=== PATIENT | male | born 1975 | race Asian ===

== ENCOUNTER 2020-12-22 22:33 | Emergency (ER) | payer OTHER, SELFPAY ==
[2020-12-22 22:34] VITALS: BP 137/77; PULSE 82; RESP 18; TEMP 36.5; O2SAT 99; BMI 22.1
--- NOTE | 2020-12-22 23:39 | ED.WOUNDLAC ---
HPI - Wound/Laceration General Chief Complaint: Wound/Laceration Stated Complaint: finger lac Time Seen by Provider: 12/22/20 23:30 Source: patient Mode of arrival: ambulatory Limitations: no limitations History of Present Illness HPI narrative: While doing dishes the glass shattered and he cut his finger. States there is no foreign body. he is up to date with his tetanous. Onset (ago): hour(s) Extremity Location: left: hand Place: home Patient tetanus UTD: Yes Context: accidental Treatments prior to arrival: cold therapy Related Data Allergies Allergy/AdvReac Type Severity Reaction Status Date / Time lamotrigine [From LAMICTAL] Allergy Severe RASH - Verified 12/22/20 23:13 FULL BODY varenicline [From CHANTIX] AdvReac Unknown SUICIDAL Verified 12/22/20 23:13 ziprasidone [From GEODON] AdvReac Unknown SUICIDAL Verified 12/22/20 23:13 SSRI AdvReac Intermediate SI Uncoded 12/12/19 16:53 Review of Systems Constitutional: Constitutional: Reports no additional constitutional complaints Eyes: Eyes: Reports no additional eye complaints ENT: Denies dizziness Cardiovascular: Cardiovascular: Reports no additional cardiovascular complaints Respiratory: Respiratory: Reports as per HPI Gastrointestinal: Gastrointestinal: Reports no additional gastrointestinal complaints Musculoskeletal: Musculoskeletal: Reports no additional musculoskeletal complaints Integumentary/Breasts: Skin/Breast: Denies rash Neurologic: Reports system reviewed and no additional complaints, except as documented, Denies dizziness and Denies Sensory deficit (Neuro) Psychiatric: Psychiatric: Denies anxiety [facility] Social History Social History Advance Directives: No Physical Exam Vital Signs: Vital Signs: Last Vital Signs Temp 97.7 F 12/22/20 22:34 Pulse 82 12/22/20 22:34 Resp 18 12/22/20 22:34 BP 137/77 12/22/20 22:34 Pulse Ox 99 12/22/20 22:34 Body Mass Index 22.1 Const: General: healthy appearing Nutritional Appearance: average body habitus Orientation/consciousness: oriented to person and patient oriented x3 Limitations: no limitations HENMT: Head: Yes normal to inspection Ears: external ears normal General nose exam: Normal external nose present Mouth: Normal oral and palatal mucosa present and oropharynx normal Throat: Yes posterior oropharynx normal Eyes: General: appearance normal, both eyes and all related structures Neck: Other: supple Neck: Yes normal visual inspection Chest: Chest palpation & inspection: normal inspection of the chest Resp: Auscultation: clear to auscultation bilaterally Cardio: Jugular venous distension: no JVD Rate: regular rate Rhythm: regular rhythm Heart sounds: S1 normal heart sound present and S2 normal heart sound present GI: Inspection: Yes normal to inspection Palpation (GI): Soft to palpation, nontender and No hepatosplenomegaly present Auscultation: normal bowel sounds : General: Yes no CVA tenderness Back/Spine/Pelvis: Back: no CVA tenderness Skin: Other: 4th digit lateral distal phalynx with laceration 1cm Neuro: General: oriented to person and patient oriented x3 Cranial nerves: Yes CN's II-XII intact bilaterally Motor exam (neuro): 5/5 motor strength present throughout Sensory Exam: No Sensory deficit (Neuro) Extrem: General: Yes normal to inspection Psych: Appearance: grossly normal Procedures Procedure Narrative Procedure Narrative: distal phalynx had dermabond placed. Patient tolerated procedure well. Discharge Plan Discharge Clinical Impression: Laceration, Glued skin wound Patient Disposition: Home, Self-Care Instructions: Finger Laceration (ED) Referrals: Kirk Sherwood MD [Primary Care Provider] - 10 days
== END 2020-12-23 00:18 | disposition home or self-care (01) ==
PROVIDERS: Emergency Provider Emergency Medicine; PCP Internal Medicine
DX: S61.215A Laceration without foreign body of left ring finger without damage to nail, initial encounter (principal); M79.642 Pain in left hand; W25.XXXA Contact with sharp glass, initial encounter; Y93.9 Activity, unspecified; Y92.000 Kitchen of unspecified non-institutional (private) residence as the place of occurrence of the external cause; Y99.9 Unspecified external cause status
CPT/HCPCS: 99283

== ENCOUNTER 2023-02-13 13:57 | Outpatient (AMB) | payer OTHER, SELFPAY ==
--- NOTE | 2023-02-13 14:01 | HO.NEPHOV_ITS ---
HPI HPI Comments History of Present Illness Details I had the privilege of seeing Mr Templeton in consultation for his chronic kidney disease and polyuria. He has mental health issues which is managed by Dr. Scahefer. He feels it is currently well controlled. He is back on lithium. At one time his serum creatinine went up to 1.5. He is troubled by the fact that he has polyuria after he went back on lithium. He has no history of hypercalcemia, hypernatremia. He is not a diabetic. He denies any chest pain, shortness of breath, proximal nocturnal dyspnea, orthopnea, pedal edema, hematuria, flank pain, pedal edema, history of proteinuria. He does not take any excessive nonsteroidal anti-inflammatory medications. He does not have any epistaxis, photosensitivity, skin rashes, hematemesis, melena or history of prostatic symptoms. His renal functions had been stable. [facility] Medical History (Updated 02/13/23 @ 14:23 by Edgar Cao MD) PTSD (post-traumatic stress disorder) Bipolar disorder Surgical History (Updated 02/13/23 @ 14:05 by Kristin Jay MA) History of hand surgery History of throat surgery Family History (Updated 02/13/23 @ 14:07 by Kristin Jay MA) Father Diabetes Paternal Aunt Diabetes Paternal Grandmother Diabetes (Updated 02/13/23 @ 14:06 by Kristin Jay MA) Alcohol intake: never Patient Tobacco Use Status: Never used Tobacco Substance Use Type: Marijuana Vital Signs 02/13/23 14:02 Height 5 ft 9.5 in Weight 133 lb 8 oz BMI 19.4 BP 100/60 Blood Pressure Location Lt brachial Position Sitting Pulse 79 Pulse Source Pulse Oximeter Physical Exam Vital Signs: Last Vital Signs Pulse 79 02/13/23 14:02 BP 100/60 02/13/23 14:02 BMI result Body Mass Index 19.4 Const General: comfortable and no acute distress Orientation/consciousness: patient oriented x3 HEENT Head: Yes normocephalic Mouth: Normal oral and palatal mucosa present Eyes EOM: EOMs intact bilaterally Neck Neck: Yes supple Resp Auscultation: clear to auscultation bilaterally Cardio Jugular venous distension: no JVD Rate: regular rate GI Palpation (GI): Soft to palpation Auscultation: normal bowel sounds General: Yes no CVA tenderness Back/Spine/Pelvis Back: no CVA tenderness Skin General skin exam: no rashes or lesions noted Neuro General: patient oriented x3 and moves all extremities Extrem General: Yes no pedal edema Assessment & Plan Assessment & Plan (1) Diabetes insipidus: Code(s): E23.2 - Diabetes insipidus Plan: 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 His renal functions are pretty stable. He has no hypernatremia, hypercalcemia but has polyuria. He does not take any nonsteroidal anti-inflammatory medications. He denies compulsive water intake. I have started him on amiloride 2.5 mg daily. I explained that we need to monitor his electrolytes including potassium as well as renal functions. I shall check urine specific gravity, serum calcium, serum sodium as well as renal functions. Will check a urine protein creatinine ratio with time. All his questions and concerns were addressed regarding his mild CKD and polyuria. Follow-up appointment was given. Time spent retrieving data, patient encounter and documentation 31 minutes. Orders: Orders Electrolytes 02/13/23 E23.2 - Diabetes insipidus Blood Urea Nitrogen 02/13/23 E23.2 - Diabetes insipidus Creatinine 02/13/23 E23.2 - Diabetes insipidus Calcium 02/13/23 E23.2 - Diabetes insipidus Medications: New amiloride 2.5 mg (1/2 x 5 mg) PO DAILY 30 days 15 tabs 3RF Coding Level of Care Code New Pt Level 4 (03754) Diagnoses Diabetes insipidus E23.2
[2023-02-13 14:02] VITALS: BP 100/60; PULSE 79; BMI 19.4
== END 2023-02-13 14:29 | disposition home or self-care (01) ==
PROVIDERS: PCP Internal Medicine; Visit Provider Internal Medicine Nephrology
DX: E23.2 Diabetes insipidus (principal); N18.2 Chronic kidney disease, stage 2 (mild); R35.89 Other polyuria
CPT/HCPCS: 99204

== ENCOUNTER → 2023-02-13 13:57 | Outpatient (BNVA) | payer OTHER, SELFPAY | PROVIDERS: PCP Internal Medicine; Visit Provider Internal Medicine Nephrology | DX: E23.2 Diabetes insipidus (principal) | CPT/HCPCS: 99202 ==

== ENCOUNTER 2023-04-12 15:48 | Outpatient (REF) | payer OTHER, SELFPAY ==
[2023-04-12 16:59] LABS: Anion Gap 10 (12-20); Blood Urea Nitrogen 7 mg/dL (9-16); Calcium 9.6 mg/dL (8.4-10.2); Carbon Dioxide 30 mmol/L (22-29); Chloride 102 mmol/L (96-108); Estimated Glomerular Filt Rate > 60; Potassium 3.8 mmol/L (3.3-5.1); Sodium 138 mmol/L (135-145)
== END 2023-04-12 15:49 | disposition home or self-care (01) ==
LOC: HO.LAB 15:48
PROVIDERS: PCP Internal Medicine; Visit Provider Internal Medicine Nephrology
DX: E23.2 Diabetes insipidus (principal)
CPT/HCPCS: 36415; 80051; 82310; 82565; 84520

== ENCOUNTER 2023-04-18 14:03 | Outpatient (AMB) | payer OTHER, SELFPAY ==
[2023-04-18 14:12] VITALS: BP 102/70; PULSE 85; O2SAT 99; BMI 19.0
--- NOTE | 2023-04-18 14:12 | HO.NEPHOV ---
HPI HPI Comments History of Present Illness Details I had the privilege of seeing Mr Templeton in follow up for his chronic kidney disease and polyuria. He has mental health issues which is managed by Dr. Schaefer. He feels it is currently well controlled. He is back on lithium. At one time his serum creatinine went up to 1.5 but has settled to baseline now. He is troubled by the fact that he has polyuria after he went back on lithium. He has no history of hypercalcemia, hypernatremia. He is not a diabetic. He denies any chest pain, shortness of breath, proximal nocturnal dyspnea, orthopnea, pedal edema, hematuria, flank pain, pedal edema, history of proteinuria. He feels he has some nocturnal incontinence. He does not take any excessive nonsteroidal anti-inflammatory medications. He does not have any epistaxis, photosensitivity, skin rashes, hematemesis, melena or history of prostatic symptoms. He claims to be compliant with his medications. He follows with a psychiatrist every month. [facility] Medical History (Updated 04/18/23 @ 14:40 by Edgar Cao MD) PTSD (post-traumatic stress disorder) Bipolar disorder Surgical History History of hand surgery History of throat surgery Family History Father Diabetes Paternal Aunt Diabetes Paternal Grandmother Diabetes Social History Alcohol intake: never Patient Tobacco Use Status: Never used Tobacco Substance Use Type: Marijuana Vital Signs 04/18/23 14:12 Height 5 ft 9.5 in Weight 130 lb 8 oz BMI 19.0 BP 102/70 Blood Pressure Location Lt brachial Position Sitting Pulse 85 Pulse Source Pulse Oximeter Pulse Oximetry (%) 99 Oxygen Delivery Method Room Air Physical Exam Vital Signs: Last Vital Signs Pulse 85 04/18/23 14:12 BP 102/70 04/18/23 14:12 Pulse Ox 99 04/18/23 14:12 Oxygen Delivery Method Room Air 04/18/23 14:12 BMI result Body Mass Index 19.0 Const General: comfortable and no acute distress Orientation/consciousness: patient oriented x3 HEENT Head: Yes normocephalic Mouth: Normal oral and palatal mucosa present Eyes EOM: EOMs intact bilaterally Neck Neck: Yes supple Resp Auscultation: clear to auscultation bilaterally Cardio Jugular venous distension: no JVD Rate: regular rate GI Palpation (GI): Soft to palpation Auscultation: normal bowel sounds General: Yes no CVA tenderness Back/Spine/Pelvis Back: no CVA tenderness Skin General skin exam: no rashes or lesions noted Neuro General: patient oriented x3 and moves all extremities Extrem General: Yes no pedal edema Assessment & Plan Assessment & Plan (1) Diabetes insipidus: Code(s): E23.2 - Diabetes insipidus (2) CKD (chronic kidney disease) stage 3, GFR 30-59 ml/min: Code(s): N18.30 - Chronic kidney disease, stage 3 unspecified Qualifiers: Chronic kidney disease stage 3 subtype: stage 3a (GFR 45-59) Qualified Code(s): N18.31 - Chronic kidney disease, stage 3a Plan 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 His renal functions are pretty stable. He has no hypernatremia, hypercalcemia but has polyuria. He does not take any nonsteroidal anti-inflammatory medications. He denies compulsive water intake. I increased his amiloride to 5 mg daily. I explained that we need to monitor his electrolytes including potassium as well as renal functions. I shall check urine specific gravity, serum calcium, serum sodium as well as renal functions. Will check a urine protein creatinine ratio with time. All his questions and concerns were addressed regarding his mild CKD and polyuria. Follow-up appointment was given. Orders: Orders Creatinine Today E23.2 - Diabetes insipidus Calcium Today E23.2 - Diabetes insipidus Electrolytes Today E23.2 - Diabetes insipidus Blood Urea Nitrogen Today E23.2 - Diabetes insipidus Coding Level of Care Code Est Pt Level 4 (44940) Diagnoses Diabetes insipidus E23.2 Stage 3a chronic kidney disease N18.31 Chronic kidney disease stage 3 subtype: stage 3a (GFR 45-59) Results Reviewed Nephrology Results: Hgb 12.2 g/dL (14.0-18.0) L 09/16/19 WBC 6.9 X10*3/uL (4.8-10.8) 09/16/19 Plt Count 250 x10*3/uL (160-400) 09/16/19 Sodium 138 mmol/L (135-145) 04/12/23 Potassium 3.8 mmol/L (3.3-5.1) 04/12/23 Chloride 102 mmol/L (96-108) 04/12/23 Carbon Dioxide 30 mmol/L (22-29) H 04/12/23 BUN 7 mg/dL (9-16) L 04/12/23 Creatinine 1.11 mg/dL (0.5-1.4) 04/12/23 Calcium 9.6 mg/dL (8.4-10.2) 04/12/23 Urine Protein NEG (NEG - TRACE) 09/12/19
== END 2023-04-18 15:01 | disposition home or self-care (01) ==
PROVIDERS: PCP Internal Medicine; Visit Provider Internal Medicine Nephrology
DX: E23.2 Diabetes insipidus (principal); N18.31 Chronic kidney disease, stage 3a
CPT/HCPCS: 99214

== ENCOUNTER → 2023-04-18 14:03 | Outpatient (BNVA) | payer OTHER, SELFPAY | PROVIDERS: PCP Internal Medicine; Visit Provider Internal Medicine Nephrology | DX: E23.2 Diabetes insipidus (principal); N18.31 Chronic kidney disease, stage 3a | CPT/HCPCS: 99212 ==

== ENCOUNTER 2023-07-27 13:26 | Outpatient (AMB) | payer OTHER, SELFPAY ==
--- NOTE | 2023-07-27 13:33 | HO.NEPHOV ---
Vital Signs 07/27/23 13:40 Height 5 ft 9.5 in Weight 127 lb 4 oz BMI 18.5 BP 90/60 Blood Pressure Location Lt brachial Position Sitting Pulse 81 Pulse Source Pulse Oximeter Pulse Oximetry (%) 98 Oxygen Delivery Method Room Air Intake Visit Reasons: CKD/ 3 Months/ Confirmed Oncology Nurse Navigator Required: No Accompanied by: Self / Same As Patient Allergies lamotrigine [From LAMICTAL] Allergy (Severe, Verified 07/27/23 13:41) RASH - FULL BODY varenicline [From CHANTIX] Adverse Reaction (Unknown, Verified 07/27/23 13:41) SUICIDAL ziprasidone [From GEODON] Adverse Reaction (Unknown, Verified 07/27/23 13:41) SUICIDAL SSRI Adverse Reaction (Intermediate, Uncoded 12/12/19 16:53) SI HPI Comments Details: I had the privilege of seeing Mr Templeton in follow up for his chronic kidney disease and polyuria. He has mental health issues which is managed by Dr. Schaefer. He feels it is currently well controlled. He is back on lithium. At one time his serum creatinine went up to 1.5 but has settled to baseline now. He was troubled by the fact that he has polyuria after he went back on lithium. He has no history of hypercalcemia, hypernatremia. He is not a diabetic. He denies any chest pain, shortness of breath, proximal nocturnal dyspnea, orthopnea, pedal edema, hematuria, flank pain, pedal edema, history of proteinuria. He feels he has some nocturnal incontinence. He does not take any excessive nonsteroidal anti-inflammatory medications. He does not have any epistaxis, photosensitivity, skin rashes, hematemesis, melena or history of prostatic symptoms. He claims to be compliant with his medications. He follows with a psychiatrist every month . He has been started on Depakote but was making him drowsy and it has been stopped. [facility] Medical History (Updated 04/18/23 @ 14:40 by Edgar Cao MD) PTSD (post-traumatic stress disorder) Bipolar disorder Surgical History History of hand surgery History of throat surgery Family History Father Diabetes Paternal Aunt Diabetes Paternal Grandmother Diabetes Social History Alcohol intake: never Patient Tobacco Use Status: Never used Tobacco Substance Use Type: Marijuana Physical Exam Const General: comfortable and no acute distress Orientation/consciousness: patient oriented x3 HEENT Head: Yes normocephalic Mouth: Normal oral and palatal mucosa present Eyes EOM: EOMs intact bilaterally Neck Neck: Yes supple Resp Auscultation: clear to auscultation bilaterally Cardio Jugular venous distension: no JVD Rate: regular rate GI Palpation (GI): Soft to palpation Auscultation: normal bowel sounds General: Yes no CVA tenderness Back/Spine/Pelvis Back: no CVA tenderness Skin General skin exam: no rashes or lesions noted Neuro General: patient oriented x3 and moves all extremities Extrem General: Yes no pedal edema Assessment & Plan Assessment & Plan (1) CKD (chronic kidney disease) stage 3, GFR 30-59 ml/min: Code(s): N18.30 - Chronic kidney disease, stage 3 unspecified Category: Medical Qualifiers: Chronic kidney disease stage 3 subtype: stage 3a (GFR 45-59) Qualified Code(s): N18.31 - Chronic kidney disease, stage 3a (2) Diabetes insipidus: Code(s): E23.2 - Diabetes insipidus Category: Medical Plan 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 His renal functions had been pretty stable. He has no hypernatremia, hypercalcemia but has polyuria. He does not take any nonsteroidal anti-inflammatory medications. He denies compulsive water intake. He can c/w amiloride 5 mg daily. I explained that we need to monitor his electrolytes including potassium as well as renal functions. I shall check urine specific gravity, serum calcium, serum sodium as well as renal functions. Will check a urine protein creatinine ratio with time. All his questions and concerns were addressed regarding his mild CKD and polyuria. Follow-up appointment was given Orders: Orders Electrolytes Today Protein Creatinine Ratio, Ur Today Creatinine Today Blood Urea Nitrogen Today Calcium Today Specific [place] - Urine Today Coding Level of Care Code Est Pt Level 4 (71388) Diagnoses Stage 3a chronic kidney disease N18.31 Chronic kidney disease stage 3 subtype: stage 3a (GFR 45-59) Diabetes insipidus E23.2
[2023-07-27 13:40] VITALS: BP 90/60; PULSE 81; O2SAT 98; BMI 18.5
== END 2023-07-27 13:56 | disposition home or self-care (01) ==
PROVIDERS: PCP Internal Medicine; Visit Provider Internal Medicine Nephrology
DX: N18.31 Chronic kidney disease, stage 3a (principal); E23.2 Diabetes insipidus
CPT/HCPCS: 99214

== ENCOUNTER → 2023-07-27 13:26 | Outpatient (BNVA) | payer OTHER, SELFPAY | PROVIDERS: PCP Internal Medicine; Visit Provider Internal Medicine Nephrology | DX: N18.31 Chronic kidney disease, stage 3a (principal); E23.2 Diabetes insipidus | CPT/HCPCS: 99212 ==

== ENCOUNTER 2024-02-15 14:41 | Outpatient (AMB) | payer OTHER, SELFPAY ==
--- NOTE | 2024-02-15 14:53 | HO.NEPHOV ---
Vital Signs 02/15/24 14:56 Height 5 ft 9.5 in Weight 122 lb 4 oz BMI 17.8 BP 100/60 Blood Pressure Location Lt brachial Position Sitting Pulse 103 H Pulse Source Pulse Oximeter Pulse Oximetry (%) 98 Oxygen Delivery Method Room Air Intake Visit Reasons: Rscng 01/31 appt [employer] Required: No Accompanied by: Self / Same As Patient Allergies lamotrigine [From LAMICTAL] Allergy (Severe, Verified 02/15/24 14:56) RASH - FULL BODY varenicline [From CHANTIX] Adverse Reaction (Unknown, Verified 02/15/24 14:56) SUICIDAL ziprasidone [From GEODON] Adverse Reaction (Unknown, Verified 02/15/24 14:56) SUICIDAL SSRI Adverse Reaction (Intermediate, Uncoded 12/12/19 16:53) SI HPI Comments Details: Mr Templeton was seen in follow up for his chronic kidney disease and polyuria. He has mental health issues which is managed by Dr. Schaefer. He feels it is currently well controlled. He is back on lithium. At one time his serum creatinine went up to 1.5 but has settled to baseline now. He was troubled by the fact that he has polyuria after he went back on lithium, but better now. He has no history of hypercalcemia, hypernatremia. He is not a diabetic. He denies any chest pain, shortness of breath, proximal nocturnal dyspnea, orthopnea, pedal edema, hematuria, flank pain, pedal edema, history of proteinuria. He does not take any excessive nonsteroidal anti-inflammatory medications. He does not have any epistaxis, photosensitivity, skin rashes, hematemesis, melena or history of prostatic symptoms. He claims to be compliant with his medications. He follows with a psychiatrist every month. [facility] Medical History (Updated 04/18/23 @ 14:40 by Edgar Cao MD) PTSD (post-traumatic stress disorder) Bipolar disorder Surgical History History of hand surgery History of throat surgery Family History Father Diabetes Paternal Aunt Diabetes Paternal Grandmother Diabetes Social History Alcohol intake: never Patient Tobacco Use Status: Never used Tobacco Substance Use Type: Marijuana Review of Systems Const All systems reviewed & are unremarkable except as noted in HPI and below Physical Exam Vital Signs: Last Vital Signs Pulse 103 H 02/15/24 14:56 BP 100/60 02/15/24 14:56 Pulse Ox 98 02/15/24 14:56 Oxygen Delivery Method Room Air 02/15/24 14:56 BMI result Body Mass Index 17.8 Const General: comfortable and no acute distress Orientation/consciousness: patient oriented x3 HEENT Head: Yes normocephalic Mouth: Normal oral and palatal mucosa present Eyes EOM: EOMs intact bilaterally Neck Neck: Yes supple Resp Auscultation: clear to auscultation bilaterally Cardio Jugular venous distension: no JVD Rate: regular rate GI Palpation (GI): Soft to palpation Auscultation: normal bowel sounds General: Yes no CVA tenderness Back/Spine/Pelvis Back: no CVA tenderness Skin General skin exam: no rashes or lesions noted Neuro General: patient oriented x3 and moves all extremities Extrem General: Yes no pedal edema Assessment & Plan Assessment & Plan (1) CKD (chronic kidney disease) stage 3, GFR 30-59 ml/min: Code(s): N18.30 - Chronic kidney disease, stage 3 unspecified Category: Medical Qualifiers: Chronic kidney disease stage 3 subtype: stage 3a (GFR 45-59) Qualified Code(s): N18.31 - Chronic kidney disease, stage 3a (2) Diabetes insipidus: Code(s): E23.2 - Diabetes insipidus Category: Medical Plan 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 His renal functions had been pretty stable. He has no hypernatremia, hypercalcemia but has polyuria. He does not take any nonsteroidal anti-inflammatory medications. He denies compulsive water intake. He can c/w amiloride 5 mg daily for now which we may have to increase further if needed. I explained that we need to monitor his electrolytes including potassium as well as renal functions.All his questions and concerns were addressed regarding his mild CKD and polyuria. Follow-up appointment was given Orders: Orders Electrolytes 6 Months E23.2 - Diabetes insipidus, N18.31 - Chronic kidney disease, stage 3a Creatinine 6 Months E23.2 - Diabetes insipidus, N18.31 - Chronic kidney disease, stage 3a Blood Urea Nitrogen 6 Months E23.2 - Diabetes insipidus, N18.31 - Chronic kidney disease, stage 3a Medications: Refilled amiloride 5 mg PO DAILY 90 tabs 4RF Coding Level of Care Code Est Pt Level 4 (42258) Diagnoses Stage 3a chronic kidney disease N18.31 Chronic kidney disease stage 3 subtype: stage 3a (GFR 45-59) Diabetes insipidus E23.2
[2024-02-15 14:56] VITALS: BP 100/60; PULSE 103; O2SAT 98; BMI 17.8
== END 2024-02-15 15:21 | disposition home or self-care (01) ==
PROVIDERS: PCP Internal Medicine; Visit Provider Internal Medicine Nephrology
DX: N18.31 Chronic kidney disease, stage 3a (principal); E23.2 Diabetes insipidus
CPT/HCPCS: 99214

== ENCOUNTER → 2024-02-15 14:41 | Outpatient (BNVA) | payer OTHER, SELFPAY | PROVIDERS: PCP Internal Medicine; Visit Provider Internal Medicine Nephrology | DX: N18.31 Chronic kidney disease, stage 3a (principal); R35.89 Other polyuria; E23.2 Diabetes insipidus | CPT/HCPCS: 99212 ==

== ENCOUNTER 2024-06-25 09:40 | Outpatient (AMB) | payer OTHER, SELFPAY ==
--- NOTE | 2024-06-25 09:48 | HO.NEPHOV ---
Vital Signs 06/25/24 09:49 Height 5 ft 9.5 in Weight 127 lb BMI 18.5 BP 100/50 L Blood Pressure Location Lt brachial Position Sitting Pulse 96 Pulse Source Pulse Oximeter Pulse Oximetry (%) 97 Oxygen Delivery Method Room Air Intake Visit Reasons: Urinary issues-Conf Retail Property Manager Required: No Accompanied by: Self / Same As Patient Allergies lamotrigine [From LAMICTAL] Allergy (Severe, Verified 06/25/24 09:49) RASH - FULL BODY varenicline [From CHANTIX] Adverse Reaction (Unknown, Verified 06/25/24 09:49) SUICIDAL ziprasidone [From GEODON] Adverse Reaction (Unknown, Verified 06/25/24 09:49) SUICIDAL SSRI Adverse Reaction (Intermediate, Uncoded 12/12/19 16:53) SI HPI Comments Details: Mr Templeton was seen in follow up for his chronic kidney disease and polyuria. He has mental health issues which is managed by Dr. Schaefer. He feels it is currently well controlled. He is back on lithium. At one time his serum creatinine went up to 1.5 but has settled to baseline now. He was troubled by the fact that he has polyuria after he went back on lithium. He has no history of hypercalcemia, hypernatremia. He is not a diabetic. He denies any chest pain, shortness of breath, proximal nocturnal dyspnea, orthopnea, pedal edema, hematuria, flank pain, pedal edema, history of proteinuria. He does not take any excessive nonsteroidal anti-inflammatory medications. He does not have any epistaxis, photosensitivity, skin rashes, hematemesis, melena or history of prostatic symptoms. He claims to be compliant with his medications. He follows with a psychiatrist every month. [facility] Medical History (Updated 04/18/23 @ 14:40 by Edgar Cao MD) PTSD (post-traumatic stress disorder) Bipolar disorder Surgical History History of hand surgery History of throat surgery Family History Father Diabetes Paternal Aunt Diabetes Paternal Grandmother Diabetes Social History Alcohol intake: never Patient Tobacco Use Status: Never used Tobacco Substance Use Type: Marijuana Review of Systems Const All systems reviewed & are unremarkable except as noted in HPI and below Physical Exam Vital Signs: Last Vital Signs Pulse 96 06/25/24 09:49 BP 100/50 L 06/25/24 09:49 Pulse Ox 97 06/25/24 09:49 Oxygen Delivery Method Room Air 06/25/24 09:49 BMI result Body Mass Index 18.5 Const General: comfortable and no acute distress Orientation/consciousness: patient oriented x3 HEENT Head: Yes normocephalic Mouth: Normal oral and palatal mucosa present Eyes EOM: EOMs intact bilaterally Neck Neck: Yes supple Resp Auscultation: clear to auscultation bilaterally Cardio Jugular venous distension: no JVD Rate: regular rate GI Palpation (GI): Soft to palpation Auscultation: normal bowel sounds Skin General skin exam: no rashes or lesions noted Neuro General: patient oriented x3 and moves all extremities Extrem General: Yes no pedal edema Results Reviewed Nephrology Results: Sodium 138 mmol/L (135-145) 04/12/23 Potassium 3.8 mmol/L (3.3-5.1) 04/12/23 Chloride 102 mmol/L (96-108) 04/12/23 Carbon Dioxide 30 mmol/L (22-29) H 04/12/23 BUN 7 mg/dL (9-16) L 04/12/23 Creatinine 1.11 mg/dL (0.5-1.4) 04/12/23 Calcium 9.6 mg/dL (8.4-10.2) 04/12/23 Assessment & Plan Assessment & Plan (1) CKD (chronic kidney disease) stage 3, GFR 30-59 ml/min: Code(s): N18.30 - Chronic kidney disease, stage 3 unspecified Category: Medical Qualifiers: Chronic kidney disease stage 3 subtype: stage 3a (GFR 45-59) Qualified Code(s): N18.31 - Chronic kidney disease, stage 3a (2) Diabetes insipidus: Code(s): E23.2 - Diabetes insipidus Category: Medical Plan 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 His renal functions had been pretty stable. He has no hypernatremia, hypercalcemia but has polyuria. He does not take any nonsteroidal anti-inflammatory medications. He denies compulsive water intake. He can c/w amiloride 5 mg daily for now which we may have to increase further if needed. I explained that we need to monitor his electrolytes including potassium as well as renal functions.All his questions and concerns were addressed regarding his mild CKD and polyuria. Follow-up appointment was given Orders: Orders Blood Urea Nitrogen Today E23.2 - Diabetes insipidus, N18.31 - Chronic kidney disease, stage 3a Electrolytes Today E23.2 - Diabetes insipidus, N18.31 - Chronic kidney disease, stage 3a Creatinine Today E23.2 - Diabetes insipidus, N18.31 - Chronic kidney disease, stage 3a Coding Level of Care Code Est Pt Level 4 (25541) Diagnoses Stage 3a chronic kidney disease N18.31 Chronic kidney disease stage 3 subtype: stage 3a (GFR 45-59) Diabetes insipidus E23.2
[2024-06-25 09:49] VITALS: BP 100/50; PULSE 96; O2SAT 97; BMI 18.5
== END 2024-06-25 10:14 | disposition home or self-care (01) ==
LOC: HO.HKAS 09:41
PROVIDERS: PCP Internal Medicine; Visit Provider Internal Medicine Nephrology
DX: N18.31 Chronic kidney disease, stage 3a (principal); E23.2 Diabetes insipidus
CPT/HCPCS: 99214

== ENCOUNTER → 2024-06-25 09:40 | Outpatient (BNVA) | payer OTHER, SELFPAY | PROVIDERS: PCP Internal Medicine; Visit Provider Internal Medicine Nephrology | DX: R35.89 Other polyuria (principal); E23.2 Diabetes insipidus; N18.31 Chronic kidney disease, stage 3a | CPT/HCPCS: 99212 ==